=== PATIENT | female | born 1975 | race Caucasian/White ===

== ENCOUNTER 2018-11-25 07:30 | Day surgery (SDC) | payer BC, SELFPAY ==
[2018-11-25] VITALS (7 sets, daily range): BP systolic 105–132; BP diastolic 73–78; PULSE 56–60; RESP 14–16; TEMP 36.1–36.8; O2SAT 100; BMI 24.3
--- NOTE | 2018-11-25 | IMM_PTH ---
PATIENT: GARY CRAIN LOC: [facility] – [place] U#:[id number] AGE/SX: 43/F ROOM: RE11/25/[address]: Dr. Ellie Pena DO : 1975 BED: DIS: 11/25/2018 SPEC #: [id number] RECD: 11/26/18 11:32 STATUS: DALILA MARIA TERESA #: [id number] HOOD: 11/25/18 00:[address]: Ellie Pena DEPT: IMMUNOHISTOCHEMISTRY RECD BY: Che Reyna ENTERED: 11/26/18 11:33 SP TYPE: IMMUNO OTHR DR: Out of Town Doctor Tissues: Uterine cervix, NOS Procedures: p16 (initial) KI-67 (add) P16 (add) PHYSICIAN & INSTITUTION [place] [id number] SPECIMEN INFORMATION: Tissue Source: Cervix, conization Clinical Info: Abnormal MRI Specimen Number: [id number] #1 & 3 CPT code: 59324, 48158 x3 METHODOLOGY: Deparaffinized sections of prefer/formalin-fixed tissue or PAP/DQ stained slides are incubated with monoclonal/polyclonal antibodies/oligonucleotide probes. Localization is made via biotin free immunoperoxidase method. Appropriate controls are performed and reacted as expected. Results on target cell population are indicated in the following table: RESULTS: ANTIBODY / CLONE RESULT Block 1 P16 (E6H4) positive, focal, patchy Ki-67 (30-9) positive, low Block 3 P16 (E6H4) positive, focal, patchy Ki-67 (30-9) positive, low These tests were developed and their performance characteristics determined by [facility]. They may not have been cleared or approved by the U.S. Food and Drug Administration. The FDA has determined that such clearance or approval is not necessary. INTERPRETATION: Cervix, conization: Focal HPV change/mild squamous dysplasia. AM:radha 11/29/18
[2018-11-25 08:08] LABS: Hematocrit 37.9 % (37-47); Hemoglobin 12.6 g/dl (12.0-15.0); Mean Corp Hgb Conc 33.2 g/gl (32-36); Mean Corpuscular Hgb 30.4 pg (27.0-32.0); Mean Corpuscular Volume 91.3 fL (81-99); Mean Platelet Vol. 10.6 fl (6.2-12.0); Platelet Count 228 K/mm3 (150-450); RBC Distribution Width CV 13.1 % (11.6-14.6); RBC Distribution Width SD 43.6 fl (35.1-43.9); Red Blood Count 4.15 M/mm3 (4.2-5.4); White Blood Count 3.9 K/mm3 (4.4-11.0)
[2018-11-25 08:11] LABS: Scan Indicated on CBC? Y/N NO
[2018-11-25 08:11] LABS: Internal QC Validated? YES +Cl - CLEAR BKGD; Pregnancy, Urine Negative Negative
--- NOTE | 2018-11-25 08:54 | DCINST_ITS ---
Discharge Diet: No Restrictions Discharge Activity: May not drive while taking narcotic pain medications., May Shower, - - May not take a tub bath May resume sexual activity in: 4-6 weeks - Will do an exam to assess healing at your post-op appointment Weight Bearing Status: Full weight bearing Lifting Restrictions: Nothing greater than 20 lbs Call your doctor if you observe: Fever of 101 or Higher, Inability to urinate, Inability to have a bowel movement, Using more than one pad per hour, Shortness of breath, Dizziness, Fainting spells, Increased palpitations (irregular heartbeat), Calf discomfort, Uncontrolled pain Cleanse incision/area with: Soap & Water Instructions: After a Cone Biopsy Allergies/Adverse Reactions: Allergies venlafaxine [From Effexor] Adverse Reaction (Verified 11/25/18 07:48) NIGHTMARES Medications to take at Discharge DiphenhydrAMINE [Benadryl] 50 mg PO QHS 11/18/18 Duloxetine Hcl [Cymbalta] 60 mg PO DAILY 11/18/18 Gabapentin [Neurontin] 600 mg PO BIDCM 11/18/18 Ginseng 200 mg PO DAILY 11/18/18 Levothyroxine Sodium [Synthroid] 137 mcg PO DAILY 11/18/18 Ondansetron HCl [Zofran] 4 mg SL Q6H PRN 11/18/18 Oxycodone HCl 10 mg PO Q4H PRN 11/18/18 Oxycodone HCl/Acetaminophen [Percocet 5-325 mg Tablet] 1 each PO Q6H PRN 11/18/18 Senna [Senokot] 1 tablet PO DAILY PRN 11/18/18 Primary Care Physician: Sean Howard,Out of [Primary Care Provider] - Test Results: Test results from this visit will be discussed in further detail at your follow- up appointment, if applicable. Please Follow Up With: Ellie Pena DO
--- NOTE | 2018-11-25 09:00 | CER_PTH ---
PATIENT: GARY CRAIN LOC: [facility] – [place] U#:[id number] AGE/SX: 43/F ROOM: RE11/25/[address]: Dr. Ellie Pena, : 1975 BED: DIS: 11/25/2018 SPEC #: [id number] RECD: 11/25/18 14:10 STATUS: DALILA MOREL #: [id number] HOOD: 11/25/18 09:[address]: Ellie Pena DEPT: SURGICAL PATHOLOGY RECD BY: Ezekiel Harmon ENTERED: 11/25/18 14:38 SP TYPE: CERV OTHR DR: Out of Town Doctor Tissues: Uterine cervix, NOS Procedures: Surgery Specimen Level IV HEADER OPERATION: Cervical cold knife conization PRE-OP DIAGNOSIS: Abnormal MRI TISSUE SUBMITTED: Cervical cone marked at 12 o'clock MICROSCOPIC DIAGNOSIS Cervix, LEEP conization: Mild squamous dysplasia, JESSA I (HGSIL). Squamous metaplasia and chronic inflammation. Margins of excision free of dysplasia. See comment. AM:radha 11/26/18 COMMENT Results from immunohistochemistry ([id number]) for surrogate HPV marker (p16) will be reported separately. MICROSCOPIC DESCRIPTION Slides are reviewed. GROSS DESCRIPTION Received in fixative is one container labeled with the patient's name and designated cervical cone. The specimen consists of an irregular fragment of pink-coe glistening mucosa with attached pink-coe soft tissue measuring 2.2 x 2 x 0.8 cm. The specimen has been oriented and is differentially inked as follows: 12 to 3 o'clock - black, 3 to 6 o'clock - blue, 6 to 9 o'clock - green and 9 to 12 o'clock - yellow. The specimen is sectioned and totally submitted in three cassettes. / AM:radha 11/25/18 TC:3 [facility]: [id number]
--- NOTE | 2018-11-25 09:00 | CER_PTH ---
PATIENT: GARY CRAIN [place] [facility] [place][id number] AGE/SX: 43/F ROOM: RE11/25/[address]: Dr. Ellie Pena, : 1975 BED: DIS: 11/25/2018 SPEC #: [id number] RECD: 11/25/18 14:10 STATUS: DALILA MOREL #: [id number] HOOD: 11/25/18 09:[address]: Ellie Pena DEPT: SURGICAL PATHOLOGY RECD BY: Ezekiel Harmon ENTERED: 11/25/18 14:38 SP TYPE: CERV OTHR DR: Out of Town Doctor Tissues: Uterine cervix, NOS Procedures: Surgery Specimen Level IV HEADER OPERATION: Cervical cold knife conization PRE-OP DIAGNOSIS: Abnormal MRI TISSUE SUBMITTED: Cervical cone marked at 12 o'clock MICROSCOPIC DIAGNOSIS Cervix, LEEP conization: Mild squamous dysplasia, JESSA I (LGSIL). Squamous metaplasia and chronic inflammation. Margins of excision free of dysplasia. See comment. AM:radha 11/26/18 AM:radha 12/14/18 COMMENT Results from immunohistochemistry ([id number]) for surrogate HPV marker (p16) will be reported separately. MICROSCOPIC DESCRIPTION Slides are reviewed. GROSS DESCRIPTION Received in fixative is one container labeled with the patient's name and designated cervical cone. The specimen consists of an irregular fragment of pink-coe glistening mucosa with attached pink-coe soft tissue measuring 2.2 x 2 x 0.8 cm. The specimen has been oriented and is differentially inked as follows: 12 to 3 o'clock - black, 3 to 6 o'clock - blue, 6 to 9 o'clock - green and 9 to 12 o'clock - yellow. The specimen is sectioned and totally submitted in three cassettes. / AM:radha 11/25/18 TC:3 CPT: 59900 ADDENDUM ADDENDUM ADDENDUM ADDENDUM ADDENDUM ADDENDUM ADDENDUM ADDENDUM ADDENDUM ADDENDUM ADDENDUM 12/15/2018 11:24 ADDENDUM 12/15/2018 11:24 ADDENDUM 12/15/2018 11:24 ADDENDUM 12/15/2018 11:24 ADDENDUM 12/15/2018 11:24 This addendum is added to incorporate an outside pathology consultation report. The case was examined at [facility] (#[id number]) and the following diagnosis was rendered. Cervix, LEEP conization: Squamous metaplasia and chronic inflammation. Negative for dysplasia. Please see complete above mentioned consultation report in EMR
[2018-11-25] MEDS: FERRIC SUBSULFATE 8 GM SOLN (09:35)
--- NOTE | 2018-11-25 09:45 | OP.PCM_ITS ---
Problem List (1) Abnormal MRI Status: Acute Report of Operation Date of Procedure: 11/25/18 Pre-Operative Diagnosis: Abnormal MRI of cervix read as concern for adenoma malignum, watery vaginal discharge Post-Operative Diagnosis: As above Surgery/Procedure Performed:: Cervical cold knife conization Description of Surgical Findings:: Good descent of uterus and cervix. Cervix grossly normal appearing. Copious amounts of mucous within the cervix Type of Anesthesia:: MAC Specimen's removed: Cervical cone Estimated Blood Loss (mL): < 50 cc Description of Procedure: Patient taken to the operating room where MAC anesthesia was found to be adequate. She was prepped and draped in the usual sterile fashion in dorsal lithotomy position using yellow fin stirrups. Her bladder was drained with a straight catheterization. A weighted speculum was placed in the vagina, and the cervix exposed. Good descent of uterus and cervix noted. A single tooth tenaculum was placed on the anterior lip of the cervix. Sutures were placed laterally to the cervix for hemostasis. 10cc of 1% lidocaine with epinephrine was injected circumferentially along the face of the cervix. Mucous was noted to be coming from the cervix. An 11 blade scalpel was used to circumferentially cut to remove a cervical cone biopsy. Brown scissors were used to remove the biopsy completely. Copious mucous was again noted from within the cervix. The cervical cone was marked at the 12 o'clock position. The cervical bed was made hemostatic using the Bovie cautery. Monsel's solution was then placed on the cervical bed. All instruments were removed from the vagina. The patient tolerated the procedure well and was taken to the recovery room in good condition. Instrument counts were correct. - Admit VTE Documentation VTE Present on Admission: No VTE Mechan Device Prophylaxis: [facility] [place]'s VTE Pharm Prophylaxis ordered?: No
[2018-11-25] MEDS: HYDROcodone Bitartrate/Apap 5/325 Tablet PO (10:36)
== END 2018-11-25 10:54 | disposition home or self-care (01) ==
LOC: SDC 07:31 → AC 07:32
PROVIDERS: Referring Provider Obstetrics & Gynecology; Visit Provider Obstetrics & Gynecology
PROC: 0UBC7ZZ Excision of Cervix, Via Natural or Artificial Opening (ICD-10-PCS; CPT 57520; principal; 2018-11-25 08:45)
DX: N87.0 Mild cervical dysplasia (principal); F43.21 Adjustment disorder with depressed mood; F41.8 Other specified anxiety disorders; E89.0 Postprocedural hypothyroidism; Z85.850 Personal history of malignant neoplasm of thyroid; Z79.899 Other long term (current) drug therapy; Z87.891 Personal history of nicotine dependence
CPT/HCPCS: 00940; 57520; 36415; 81025; 85027; 86850; 86900; 88305; 88341; 88342; J7120